=== PATIENT | male | born 1950 | race Caucasian/White ===

== ENCOUNTER → 2016-10-31 | Outpatient (CLI) | payer OTHER ==
[~2016-10-31] MED LIST: IBUP600T44 PO; NAPR220T PO; NUTR-977 PO; RISP2TAB22 PO; SERT-234 PO; TRAM-10 PO; TRAZ50TA35 PO
--- NOTE | 2016-10-31 14:39 | DIAGNOSTIC IMAGING REPORT ---
NUCLEAR MEDICINE MAG3 RENAL SCAN CLINICAL HISTORY: Adrenocortical carcinoma COMPARISON STUDY: CT scan dated 09/22/2016 FINDINGS: The patient was injected with 8.3 mCi of technetium 99m MAG3. Renal flow appears symmetric. The fractured renal function was 45% on the left and 55% on the right. The T1 half maximum on the left was 11 minutes. The T1 half max in the right was 16 minutes. There is minor prominence of the right renal pelvis. IMPRESSION: 1. Fractured renal function of 45% of the left and 55% on the right 2. Very slight flattening of the excretory slope of the right kidney 3. No significant obstructive changes are evident Electronically signed by: Elias Longoria M.D. 10/31/2016 2:37 PM Dictated Date/Time: 10/31/2016 2:33 PM
== END | disposition home or self-care (01) ==
LOC: C.NUCL 12:09
PROVIDERS: ATTEND Radiology Radiation Oncology
DX: C74.91 Malignant neoplasm of unspecified part of right adrenal gland (principal)

== ENCOUNTER 2016-12-06 10:59 | Emergency (ER) | payer OTHER ==
[~2016-12-06] VITALS: Ht 180.3 cm; Wt 76.0 kg
[~2016-12-06 10:59] MED LIST changes: -NAPR220T PO; -NUTR-977 PO; -RISP2TAB22 PO
[2016-12-06 11:06] VITALS: TEMP 36.7; Ht 180.3 cm; Wt 76.0 kg
[2016-12-06] MEDS ORDERED: NAPR220T PO (11:25)
[2016-12-06] MEDS ORDERED: ONDANSETRON INJ 2 MG/ML 2 ML VIAL IV STA (12:49)
[2016-12-06] MEDS ORDERED: SODIUM CHLORIDE 0.9% 1000ML 1,000 ML IV STA (12:49)
[2016-12-06] MEDS ORDERED: SODIUM CHLORIDE 0.9% 1000ML 1,000 ML IV ONE (12:49)
[2016-12-06 12:51] LABS: BASO % 0.3 %; BASO ABS # 0.02 K/uL (0-0.2); COMPLETE YES; EOS % 2.3 %; HEMATOCRIT 43.3 % (42-52); IG% 0.2 %; LYMPH % 5.5 %; LYMPH ABS # 0.35 K/uL (1.2-3.4); MEAN CELL VOLUME 85.6 fL (80-100); MEAN CORPUSCULAR HEMOGLOBIN 29.2 pg (25-34); MEAN CORPUSCULAR HGB CONC 34.2 g/dl (32-36); MONO % 15.8 %; NEUT % 75.9 %; PLATELET COUNT 294 K/uL (130-400); RED BLOOD COUNT 5.06 M/uL (4.7-6.1); WHITE BLOOD COUNT 6.39 K/uL (4.8-10.8)
[2016-12-06 13:13] LABS: ALT/SGPT 17 U/L (12-78); AST/SGOT 15 U/L (15-37); BLOOD UREA NITROGEN 17 mg/dl (7-18); BUN/CREATININE RATIO 17.2 (10-20); CALCIUM 9.4 mg/dl (8.5-10.1); CARBON DIOXIDE 26 mmol/L (21-32); CHLORIDE 100 mmol/L (98-107); CREATININE 0.97 mg/dl (0.60-1.40); GLUCOSE 85 mg/dl (70-99); POTASSIUM 3.7 mmol/L (3.5-5.1); SODIUM 137 mmol/L (136-145)
[2016-12-06 13:18] LABS: ALB/GLOB RATIO 0.8 (0.9-2); ALKALINE PHOSPHATASE 122 U/L (45-117)
--- NOTE | 2016-12-06 13:24 | DIAGNOSTIC IMAGING REPORT ---
CHEST ONE VIEW PORTABLE CLINICAL HISTORY: Atypical chest pain and weakness, dizziness. COMPARISON STUDY: 08/10/2016 FINDINGS: The right-sided chest tube, nasogastric tube, and right internal jugular central venous catheter have been removed. The heart is normal in size. There is no failure. There is no focal pulmonary consolidation. There are no pleural effusions. There is a 6 mm nodular opacity at the right lung base.[ IMPRESSION: 6 mm nodular opacity at the right lung base. No evidence of focal pulmonary consolidation. No evidence of failure. Electronically signed by: Elias Longoria M.D. 12/06/2016 1:23 PM Dictated Date/Time: 12/06/2016 1:22 PM
[2016-12-06] MEDS ORDERED: ONDANSETRON HOME PACK 4MG OD TAB PO ONE (15:00)
[2016-12-06 15:08] LABS: URINE APPEARANCE CLEAR (CLEAR); URINE BILIRUBIN NEG (NEG); URINE COLOR DK YELLOW; URINE EPITHELIAL CELL AUTO >30 /lpf (0-5); URINE NITRITE NEG (NEG); URINE SPECIFIC GRAVITY 1.023 (1.000-1.030); UROBILINOGEN NEG (NEG); ZZUR CULT IF INDIC CLEAN CATCH NO
[2016-12-06 15:11] LABS: MANUAL MICROSCOPIC REQUIRED? NO; REVIEW REQ? NO
[2016-12-06 15:12] VITALS: BP 120/87; PULSE 81; O2SAT 98
--- NOTE | 2016-12-07 23:48 | EMERGENCY ROOM VISIT NOTE ---
History Report prepared by Papi: Althea Slater Under the Supervision of: Dr. Jose Hardin M.D. First contact with patient: 12:41 Chief Complaint: WEAKNESS Stated Complaint: WEAKNESS, DIZZY, ABD. PAIN, N/V Nursing Triage Summary: patient c/o ongoing weakness for one week, states "I'm just not feeling good, haven't been eating or drinking much, I can't sleep. I have a dull pain in my left side thats been pretty constant." History of Present Illness The patient is a 66 year old male who presents to the Emergency Room with complaints of persistent weakness starting about a week ago. He also complains of lightheadedness and dizziness. He also complains of nausea, vomiting, abdominal pain, diarrhea. He has a history of adrenal cancer and is receiving radiation. His last radiation treatment was yesterday. He had some nausea during radiation. He denies fevers, black/bloody stools, or any other complaints. Denies significant abdominal pain. Denies headache. No focal numbness or weakness. Denies urinary symptoms. Source of History: patient, friend Onset: about a week ago Position: other (global) Quality: other (weakness) Timing: other (persistent) Associated Symptoms: + abdominal pain, + diarrhea, + nausea, + vomiting, No fevers Review of Systems See HPI for pertinent positives & negatives. A total of 10 systems reviewed and were otherwise negative. Past Medical & Surgical Old medical records were reviewed. Nurse's notes were reviewed and I agree with. Presently treated for adenocarcinoma Family History Patient reports no known family medical history. Social History Smoking Status: Former Smoker Drug Use: none Marital Status: Occupation Status: disabled Current/Historical Medications Scheduled Naproxen Sodium (Aleve), 220 MG PO HS Sertraline (Zoloft), 1 TAB PO DAILY Trazodone Hcl (Trazodone), 50 MG PO HS Scheduled PRN Tramadol (Ultram), 1 TAB PO TID PRN for Pain Allergies Coded Allergies: No Known Allergies (Unverified , 12/06/16) Physical Exam Vital Signs Date Time Temp Pulse Resp B/P Pulse Ox O2 Delivery O2 Flow Rate FiO2 12/06/16 15:12 81 18 120/87 98 12/06/16 14:10 75 20 121/85 97 Room Air 12/06/16 12:59 67 17 123/85 96 Room Air 12/06/16 12:05 73 12/06/16 11:06 36.7 106 18 122/79 97 Room Air Physical Exam General: Non-ill appearing, middle age male, in no acute distress. HEENT: Normal cephalic atraumatic. Pupils are equal round and reactive to light. Extraocular movements are intact. Oropharynx is pink with moist mucous membranes. No swelling of the mouth lips or tongue. Neck: Supple with a midline trachea. No meningeal signs or stiffness, no JVD or bruits. No Stridor. Chest: Clear to auscultation bilaterally. No wheezes or rhonchi. No increased work of breathing. Heart: regular rate and rhythm. Abdomen: Soft nontender, nondistended without rebound guarding or rigidity. Previous surgical scars, no hernia. khari from radiation site. Extremities: No cyanosis clubbing or edema. No calf tenderness or assymetry Spine/Back. Non tender to palpation. No CVA tenderness Skin: Good turgor without rashes. Neurologic exam: Cranial nerves two through 12 are intact. Motor and sensation are intact and symmetrical throughout. Medical Decision & Procedures ER Provider Diagnostic Interpretation: X-ray results as stated below per interpretation by me and the radiologist: CHEST ONE VIEW PORTABLE CLINICAL HISTORY: Atypical chest pain and weakness, dizziness. COMPARISON STUDY: 08/10/2016 FINDINGS: The right-sided chest tube, nasogastric tube, and right internal jugular central venous catheter have been removed. The heart is normal in size. There is no failure. There is no focal pulmonary consolidation. There are no pleural effusions. There is a 6 mm nodular opacity at the right lung base.[ IMPRESSION: 6 mm nodular opacity at the right lung base. No evidence of focal pulmonary consolidation. No evidence of failure. Electronically signed by: Elias Longoria M.D. 12/06/2016 1:23 PM Dictated Date/Time: 12/06/2016 1:22 PM Laboratory Results 12/06/16 11:20 Red Blood Count 5.06, Mean Corpuscular Volume 85.6, Mean Corpuscular Hemoglobin 29.2, Mean Corpuscular Hemoglobin Concent 34.2, Mean Platelet Volume 9.0, Neutrophils (%) (Auto) 75.9, Lymphocytes (%) (Auto) 5.5, Monocytes (%) (Auto) 15.8, Eosinophils (%) (Auto) 2.3, Basophils (%) (Auto) 0.3, Neutrophils # (Auto ) 4.85, Lymphocytes # (Auto) 0.35, Monocytes # (Auto) 1.01, Eosinophils # (Auto ) 0.15, Basophils # (Auto) 0.02 12/06/16 11:20 Test 12/06/16 11:20 12/06/16 14:40 White Blood Count 6.39 K/uL (4.8-10.8) Red Blood Count 5.06 M/uL (4.7-6.1) Hemoglobin 14.8 g/dL (14.0-18.0) Hematocrit 43.3 % (42-52) Mean Corpuscular Volume 85.6 fL (80-100) Mean Corpuscular Hemoglobin 29.2 pg (25-34) Mean Corpuscular Hemoglobin Concent 34.2 g/dl (32-36) Platelet Count 294 K/uL (130-400) Mean Platelet Volume 9.0 fL (7.4-10.4) Neutrophils (%) (Auto) 75.9 % Lymphocytes (%) (Auto) 5.5 % Monocytes (%) (Auto) 15.8 % Eosinophils (%) (Auto) 2.3 % Basophils (%) (Auto) 0.3 % Neutrophils # (Auto) 4.85 K/uL (1.4-6.5) Lymphocytes # (Auto) 0.35 K/uL (1.2-3.4) Monocytes # (Auto) 1.01 K/uL (0.11-0.59) Eosinophils # (Auto) 0.15 K/uL (0-0.5) Basophils # (Auto) 0.02 K/uL (0-0.2) RDW Standard Deviation 42.7 fL (36.4-46.3) RDW Coefficient of Variation 13.8 % (11.5-14.5) Immature Granulocyte % (Auto) 0.2 % Immature Granulocyte # (Auto) 0.01 K/uL (0.00-0.02) Anion Gap 11.0 mmol/L (3-11) Est Creatinine Clear Calc Drug Dose 81.9 ml/min Estimated GFR () 95.2 Estimated GFR (Non- 82.2 BUN/Creatinine Ratio 17.2 (10-20) Calcium Level 9.4 mg/dl (8.5-10.1) Total Bilirubin 0.5 mg/dl (0.2-1) Aspartate Amino Transf (AST/SGOT) 15 U/L (15-37) Alanine Aminotransferase (ALT/SGPT) 17 U/L (12-78) Alkaline Phosphatase 122 U/L (45-117) Troponin I < 0.015 ng/ml (0-0.045) Total Protein 8.1 gm/dl (6.4-8.2) Albumin 3.6 gm/dl (3.4-5.0) Globulin 4.5 gm/dl (2.5-4.0) Albumin/Globulin Ratio 0.8 (0.9-2) Urine Color DK YELLOW Urine Appearance CLEAR (CLEAR) Urine pH 6.0 (4.5-7.5) Urine Specific [place] 1.023 (1.000-1.030) Urine Protein TRACE (NEG) Urine Glucose (UA) NEG (NEG) Urine Ketones 1+ (NEG) Urine Occult Blood NEG (NEG) Urine Nitrite NEG (NEG) Urine Bilirubin NEG (NEG) Urine Urobilinogen NEG (NEG) Urine Leukocyte Esterase NEG (NEG) Urine WBC (Auto) 1-5 /hpf (0-5) Urine RBC (Auto) 0-4 /hpf (0-4) Urine Hyaline Casts (Auto) 5-10 /lpf (0-5) Urine Epithelial Cells (Auto) >30 /lpf (0-5) Urine Bacteria (Auto) NEG (NEG) Laboratory studies as stated above per my review. Medications Administered Medications (Trade) Dose Ordered Sig/Jhonatan Route Start Time Stop Time Status Last Admin Dose Admin Sodium Chloride 1,000 ml @ 999 mls/hr Q1H1M STAT IV 12/06/16 12:49 12/06/16 13:49 DC 12/06/16 12:58 999 MLS/HR Sodium Chloride (Nss 1000ml) 1,000 ml @ 200 mls/hr Q5H ONCE IV 12/06/16 12:49 12/06/16 15:44 DC 12/06/16 12:58 200 MLS/HR Ondansetron HCl (Zofran Inj) 4 mg NOW STAT IV 12/06/16 12:49 12/06/16 12:50 DC 12/06/16 12:58 4 MG Ondansetron HCl (ZOFRAN ODT 4MG Home Pack) 1 homepack UD ONCE PO 12/06/16 15:00 12/06/16 15:01 DC 12/06/16 15:05 1 HOMEPACK ECG Indication: weakness Rate (beats per minute): 64 Rhythm: normal sinus Findings: no acute ischemic change, no ectopy, other (LVH) Comparison ECG Date: no prior available ED Course 1241: Past medical records reviewed. The patient was evaluated in room B04B, and a complete history and physical examination were performed. 1249: Zofran Inj 4 mg IV, Sodium Chloride 1000 ml @ 200 mls/hr IV, Sodium Chloride 1000 ml @ 999 mls/hr IV 1500: Ondansetron HCl 1 homepack PO. Upon reevaluation, the patient is resting comfortably. I discussed the results and treatment plan with him. He verbalized agreement of the treatment plan. The patient was discharged home. Medical Decision Differential diagnosis includes but is not limited to dehydration, gastroenteritis, bowel obstruction, infection, acute coronary syndrome, radiation complication. This patient comes in as described above. He's had some nausea vomiting diarrhea and generalized weakness. IV access established hydrated with an IV normal saline bolus and hourly rate of IV normal saline. He was also given IV Zofran. EKG and multiple blood testing was obtained. His EKG does not suggest acute coronary syndrome or arrhythmia. He has no significant electrode or metabolic abnormalities. No elevation of his white count or anything to assist sepsis or anemia. His abdomen is benign and he has no tenderness. I think that he has symptoms related to his radiation or may be just a viral illness. He has nothing to suggest infection obstruction or sepsis at this point. When I go to recheck him, he says he feels well and is demanding to go home. I will have him rest and slowly advance his diet. Use Zofran if needed for nausea or vomiting. Return if: Worsening of symptoms, not tolerating fluids, any problems concerns. He is happy the plan and discharged to home. Impression Primary Impression: Dehydration Additional Impression: Nausea & vomiting Scribe Attestation The scribe's documentation has been prepared under my direction and personally reviewed by me in its entirety. I confirm that the note above accurately reflects all work, treatment, procedures, and medical decision making performed by me. Departure Information Dispostion Home / Self-Care Referrals No Doctor, Assigned (PCP) Forms HOME CARE DOCUMENTATION FORM, IMPORTANT VISIT INFORMATION Patient Instructions My [facility] Additional Instructions Rest Drink plenty of fluids. Return if: Worsening symptoms, not tolerating fluids, fever chills, any new problems or concerns. Use Zofran 4 mg every 6 hours as needed for nausea or vomiting. Follw-up with your doctor in 1-2 days recheck. Problem Qualifiers
== END 2016-12-06 15:12 | disposition home or self-care (01) ==
LOC: C.EDB 11:01
DX: E86.0 Dehydration (principal); R11.2 Nausea with vomiting, unspecified